=== PATIENT | female | born 1975 | race Caucasian/White ===

== ENCOUNTER → 2018-11-05 | Outpatient (CLI) | payer OTHER ==
--- NOTE | 2018-11-06 10:37 | REP ---
MRI lumbar spine without contrast: History: Right-sided sciatic symptoms. Low back pain, right leg pain. History of schwannoma of the cervical spine. Comparison lumbar spine MRI study is reviewed from February 06, 2013. Technique: Sagittal and axial T1 and T2-weighted scans are acquired in the usual fashion with and without fat saturation. Sequences include spin echo, turbo spin-echo, and STIR imaging sequences. Findings: Lumbar vertebral body heights are preserved. Alignment is normal. Cortical and medullary bone signal intensity are normal. Conus medullaris is normal in position and appearance at L1. No extra vertebral abnormality is observed. Axial and sagittal images at the L5-S1 level demonstrate mild bilateral osteoarthritic facet hypertrophy which appears unchanged from the 2013 prior study. No thecal sac compression is seen. No foraminal narrowing is noted. There is no evidence of spondylolysis or spondylolisthesis. At L4-5, there is a left foraminal focal disc protrusion which appears somewhat larger than on the 2013 prior study. There is minimal bulging of the right foraminal segment of the 4-5 disc unchanged. No bony neural foraminal encroachment is seen. There is minimal facet hypertrophy at 4-5 unchanged. No spinal stenosis. At L3-4, posterior disc margin is normal. No disc protrusion or foraminal narrowing is seen. No central canal stenosis is seen. At L2-L3 and L1-L2, there is no disc abnormality. No nodule or mass lesion is seen in the cauda equina. Impression: Left foraminal focal disc protrusion at L4-5 is slightly larger than on the prior study. This contacts the adjacent nerve root. Otherwise unchanged from the comparison MRI study. Electronically Signed by Minor Katz MD 11/06/2018 12:12 P
== END ==
LOC: M RAD 18:00
PROVIDERS: ATTEND Family Medicine
DX: D36.10 Benign neoplasm of peripheral nerves and autonomic nervous system, unspecified (principal); M51.26 Other intervertebral disc displacement, lumbar region